=== PATIENT | female | born 1950 | race African-American/Black ===

== ENCOUNTER 2020-05-21 15:09 | Emergency (ER) | payer MEDICARE ==
[~2020-05-21] VITALS: Ht 154.9 cm; Wt 72.0 kg
[2020-05-21] MEDS ORDERED: HYDROCODONE/ACETAMINOPHEN 5/325MG TABLET PO STA (15:35)
[2020-05-21 16:17] LABS: BASOPHILS % 1.6 % (0.0-2.0); EOSINOPHILS % 5.2 % (0.0-5.0); HEMATOCRIT. 42.2 % (36.0-48.0); HEMOGLOBIN. 13.7 g/dL (12.0-16.0); LYMPHOCYTES % 25.9 % (20.0-50.0); MEAN CORPUSCULAR VOLUME 85.9 fL (81.0-99.0); MONOCYTES % 12.2 % (2.0-8.0); NEUTROPHILS % 55.1 % (40.0-76.0); PLATELET 211 x1000/uL (130-400); RED BLOOD CELL COUNT 4.91 mill/uL (4.2-5.4); RED CELL DISTRIBUTION WIDTH 15.3 % (11.6-14.6)
[2020-05-21 16:22] LABS: CHLORIDE 103 mEq/L (98-107)
[2020-05-21 18:17] VITALS: BP 122/76
== END 2020-05-21 18:19 | disposition home or self-care (01) ==
LOC: ER 15:09
DX: R07.89 Other chest pain (principal); I10 Essential (primary) hypertension; E78.00 Pure hypercholesterolemia, unspecified; Z90.710 Acquired absence of both cervix and uterus; Z88.0 Allergy status to penicillin
CPT/HCPCS: 36415; 71045; 80053; 83880; 84484; 85025; 93005; 99285